=== PATIENT | female | born 1995 | race Caucasian/White ===

== ENCOUNTER 2021-02-19 14:37 | Inpatient (IN) | payer BC ==
[~2021-02-19] VITALS: Ht 162.6 cm; Wt 75.9 kg
[2021-02-19] VITALS (35 sets, daily range): BP systolic 99–155; BP diastolic 53–89; PULSE 55–104; TEMP 95.9–97.9
[~2021-02-19 14:37] MED LIST: AMOXICILLIN 50500 MG; AMOXICILLIN 8751 TAB; FLEXERIL10 MG PO; FLONASE NASAL S16 GM NS; LORTAB 5/500 501 TAB PO; NAPROSYN500 MG PO; NO HOME MEDICATIONS; NORCO 325 MG-51 TAB PO; PREDNISONE20 MG PO
[2021-02-19 15:16] LABS: BASO # 0.1 (0.0-0.2); BASO % 0.3 % (0.0-2.0); EOS # 0.1 (0.0-0.7); EOS % 0.6 % (0-4.0); GRAN # 13.8 (1.4-6.5); GRAN % 79.1 % (42.2-75.2); HEMATOCRIT 39.1 % (37.0-47.0); HEMOGLOBIN 13.4 g/dl (12.5-16.0); LYMPH # 2.6 (1.2-3.4); LYMPH % 14.9 % (20.0-51.0); MEAN CELL VOLUME 90 fl (80.0-100.0); MEAN CORPUSCULAR HEMOGLOBIN 31 pg (27.0-31.0); MEAN CORPUSCULAR HGB CONC 34 g/dl (33.0-37.0); MONO # 0.8 (0.1-0.6); MONO % 4.5 % (1.7-9.3); PLATELET COUNT 228 K/mm3 (130-400); RED BLOOD COUNT 4.34 M/mm3 (4.10-5.30); REDCELL DISTRIBUTION WIDTH-CV 12.6 % (11.5-14.5)
--- NOTE | 2021-02-19 16:53 | NUR ---
1450: PT. AMBULATORY TO LDR4 FOR C/O CTX SINCE 0900 AM THIS MORNING. PT. CHANGED INTO CLEAN GOWN AND RESTING ON BED. SVE /-2. DR. GALVEZ CALLED AND INFORMED OF PT. IV STARTED, LABS COLLECTED, FLUIDS RUNNING. ASSESSMENTS COMPLETED AND CONSENTS GONE OVER AND SIGNED. PT. HAS NO QUESTIONS/COMPLAINTS AT THIS TIME. WILL CONTINUE TO MONITOR
[2021-02-19] MEDS ORDERED: PRENATAL TABLET PO (17:07)
--- NOTE | 2021-02-19 17:38 | NUR ---
FHT: 1530: DIFFICULTY TRACING FHT DUE TO PT SITTING UP FOR EPIDURAL
--- NOTE | 2021-02-19 17:39 | NUR ---
EPIDURAL PLACEMENT: 1515: ANTHONY RN AT FOR EPIDURAL PLACEMENT 1517: TIME OUT PERFORMED 1522: SINGLE SHOT VITAL SIGNS STAYED WNL, PT. LAID SUPINE AND ADJUSTED. WILL CONTINUE TO MONITOR PT
--- NOTE | 2021-02-19 19:00 | NUR ---
1900- THIS RN TO BEDSIDE TO REPOSITION PATIENT AND TOCO FOR BETTER TRACING. PATIENT WAS IN LLST, RL AND THIS RN HELPED REPOSITION HER TO RLST, LL. 190- FHR TRACING DECELERATION NOTED DOWN TO THE 85 RANGE AND THEN COMING UP TO 90-100S. FLORENCIO, RN AT BEDSIDE TO ASSIST. NEW LR HUNG AND FLUID BOLUS STARTED. 190- FHR TRACING DECELERATION NOTED DOWN TO THE 70S. THIS RN REPOSITIONED PATIENT TO WR POSITION. FHR TRACING INTERMITTENDLY AND NOTED TO BE IN 80S. EDWARD, CHARGE NURSE IN THE ROOM AT THIS TIME. 190- PATIENT MOVED TO LAYING POSITION FOR SVE. SVE 9. FHR RESPONDED TO STIMULATION. 1906- PATIENT THEN REPOSITIONED TO WL POSITION. 1907- FHR TRACING RETURNING TO BASELINE AND STAYING AT BASELINE 115-120. 1910- PROVIDER NOTIFIED, SEE PHYSICIAN NOTIFICATION.
--- NOTE | 2021-02-19 21:15 | NUR ---
2114- DR. GALVEZ AND THIS RN TO BEDSIDE FOR SVE CHECK. PATIENT WITH A SMALL ANTERIOR LIP THAT IS REDUCABLE. PER PROVIDER OKAY TO GO AND PRACTICE PUSH. THIS RN GOT ROOM AND PATIENT READY FOR PUSHING. 2129- FIRST PRACTICE PUSH WITH THIS RN. THIS RN REMAINS AT BEDSIDE DURING THIS TIME. 2139- THIS RN FEELS ANTERIOR LIP SLID BACK DOWN AND IS UNABLE TO GET IT TO REDUCE. THIS RN STOPS PUSHING WITH PATIENT AND GOES TO DESK AND ASKS DR. GALVEZ TO EVALUATE AND SEE IF WE CAN CONTINUE TO PUSH OR IF WE NEED TO STOP. 2144- DR. GALVEZ BEGINS PUSHING WITH PATIENT. THIS RN AT BEDSIDE WELL. PROVIDER VERBALIZES BEING ABLE TO REDUCE ANTERIOR LIP AND CONTINUES PUSHING WITH PATIENT. 2149- PROVIDER VERBALIZES THAT HE FEELS THE ANTERIOR LIP IS NOT SLIPPING DOWN ANYMORE AND IT IS OKAY FOR THIS RN TO CONTINUE TO PUSH WITH THE PATIENT. PROVIDER AT BEDSIDE WHILE THIS RN PUSHES WITH PATIENT FOR ABOUT 5 MINUTES. THIS RN VERBALIZES NOT BEING ABLE TO FEEL THE CERVIX ANYMORE WITH PUSHING AND WITHOUT PUSHING. THIS RN CONTINUES TO PUSH WITH PATIENT WHILE PROVIDER IS AT THE DESK ON THE UNIT, ON STANDBY. 2214- DR. GALVEZ BACK AT BEDSIDE TO EVALUATE HOW PUSHING IS GOING. THIS RN CONTINUES PUSHING WITH PATIENT. PATIENT IS VOMITING INTERMITTENTLY WHILE PUSHING BUT STATES SHE WANTS TO KEEP GOING. 223- DR. GALVEZ TO BEDSIDE AGAIN TO EVALUATE HOW PUSHING IS GOING. THIS RN STATES THAT SHE IS DOING MUCH BETTER AND WE ARE GETTING CLOSER. PROVIDER STAYS AT BEDSIDE TO EVALUATE. 224- DR. GALVEZ VERBALIZED IT IS TIME TO SET UP ROOM AND TABLE AND CALL NURSERY. ROOM AND PATIENT PREPPED FOR DELIVERY AND NURSERY STAFF NOTIFIED OF UPCOMING DELIVERY. 2247- OF VIABLE FEMALE . INFANT PLACED TO MOTHER ABDOMEN WHERE NURSERY NURSE ASSUMES CARE AT THIS TIME. PITOCIN TURNED OFF AND REPROGRAMMED FOR DELILVERY OF PLACENTA AT 333ML/HR. 2251- OF PLACENTA. PITOCIN TURNED ON PER PROTOCOL AT 333ML/HR. FUNDUS MASSAGED FIRM BY PROVIDER WITH SMALL LOCHIA NOTED. PROVIDER NOTED A SECOND DEGREE TEAR AND BEGAN REPEARING. EBL NOTED TO BE 200 2300- REPEARS FINISHED. VITALS STABLE. FUNDUS FIRM. PATIENT AND ROOM CLEANED UP. RECOVERY STARTED.
[2021-02-20] VITALS (7 sets, daily range): BP systolic 102–120; BP diastolic 55–70; PULSE 65–95; TEMP 97.6–97.9
--- NOTE | 2021-02-20 08:45 | NUR ---
Rests in bed, alert. States how to order food. Explained the menue and the phone. 0900 Ibuprofen 600 mg, tylenol 1000 mg given as ordered.
--- NOTE | 2021-02-20 10:35 | NUR ---
Initial visit; Patient thanked [employer] for offering congratulations and God's blessings for the of her daughter. [facility] thanked patient for choosing [facility].
[2021-02-21 07:15] VITALS: BP 119/94; PULSE 71; TEMP 97.7
== END 2021-02-21 13:45 | disposition home or self-care (01) | DRG 807 ==
LOC: LDRO 14:37 → LDR 15:00 → EDSTATUS 15:22 → OB 02-20 01:45
PROVIDERS: ADMIT Obstetrics & Gynecology
PROC: 10E0XZZ Delivery of Products of Conception, External Approach (ICD-10-PCS; principal; 2021-02-19)
PROC: 0KQM0ZZ Repair Perineum Muscle, Open Approach (ICD-10-PCS; 2021-02-19)
DX: O48.0 Post-term pregnancy (principal); Z37.0 Single live birth; Z3A.40 40 weeks gestation of pregnancy; O70.1 Second degree perineal laceration during delivery; F32.9 Major depressive disorder, single episode, unspecified; O99.344 Other mental disorders complicating childbirth
CPT/HCPCS: J2590; J7120